=== PATIENT | female | born 1990 | race Caucasian/White ===

== ENCOUNTER 2019-09-17 10:31 | Outpatient (CLI) | payer BC ==
--- NOTE | 2019-09-17 11:39 | ULT ---
ABDOMINAL ULTRASOUND: HISTORY: Abdominal pain. The patient has a history of Crohn's disease. Real-time imaging of the pelvis shows a normal-appearing gallbladder. The common duct is 2 mm. The liver measures 16.2 cm in length. The spleen measures 10.8 cm. The right and left kidneys are within normal limits of size and not obstructed. The pancreas, abdomi nal aorta, and IVC regions all appear unremarkable. IMPRESSION: Unremarkable abdomen ultrasound. POS: [facility]
== END 2019-09-17 10:32 | disposition home or self-care (01) ==
LOC: BICULT 10:31
PROVIDERS: ATTEND Internal Medicine
DX: K50.00 Crohn's disease of small intestine without complications (principal); K52.9 Noninfective gastroenteritis and colitis, unspecified; R11.0 Nausea; R10.84 Generalized abdominal pain; R63.4 Abnormal weight loss; R12 Heartburn
CPT/HCPCS: 36415; 80053; 82150; 82306; 83690; 84439; 84443; 85025; 85652; 86140; 93975

== ENCOUNTER 2019-10-22 12:29 | Day surgery (SDC) | payer BC ==
[~2019-10-22 12:29] MED LIST: Acetaminophen 325 MG TAB PO PRN; SODIUM CHLORIDE 0.9% IV SCH; USTEKINUMAB IV SCH; diphenhydrAMINE 25 MG CAP PO PRN
[2019-10-22] MEDS ORDERED: Sodium Chloride 0.9% 20 ML ONE (13:24)
[2019-10-22 13:32] VITALS: BP 105/72; TEMP 98.4
== END 2019-10-22 15:40 | disposition home or self-care (01) ==
LOC: ONC/OP 12:29
PROVIDERS: ATTEND Internal Medicine
DX: K50.00 Crohn's disease of small intestine without complications (principal); Z88.6 Allergy status to analgesic agent
CPT/HCPCS: 96413; J7050; Q0163